=== PATIENT | male | born 1950 | race Caucasian/White ===

== ENCOUNTER 2016-09-15 07:17 | Emergency (ER) | payer BC, OTHER ==
[2016-09-15 07:25] VITALS: TEMP 36.7; Ht 180.3 cm
[2016-09-15] MEDS ORDERED: CYCLOBENZAPRINE HCL 10 MG TAB PO STA (07:35)
[2016-09-15] MEDS ORDERED: OXYCODONE HCL IR 5 MG TAB (IMMEDIATE RELEASE) PO STA (07:35)
--- NOTE | 2016-09-15 08:37 | DIAGNOSTIC IMAGING REPORT ---
LUMBAR SPINE 5 VIEWS CLINICAL HISTORY: Fall with low back pain. FINDINGS: 5 views of lumbar spine are compared to study dated 02/14/2010. The skeletal structures are osteopenic. There is a mild to moderate and age indeterminant superior endplate compression fracture of L1. No retropulsed fragments are identified. Vertebral body height is otherwise maintained throughout the lumbar spine. Alignment is preserved. Small anterior osteophytes are seen throughout. The transverse and spinous processes appear intact. There is no evidence of spondylolysis. Facet arthropathy is seen in the lower lumbar region. Moderate disc space narrowing is seen at L5-S1. Mild disc space narrowing is seen at L4-L5. The visualized bony pelvis appears intact. There is a nonobstructed abdominal bowel gas pattern. IMPRESSION: 1. There is a mild to moderate and age indeterminant superior end plate compression fracture of L1. This is new from 2010 and may be acute. Correlate for point tenderness at this site. 2. No additional findings are concerning for acute fracture. 3. Osteopenia and degenerative change as above. Electronically signed by: Brandon Joel M.D. 09/15/2016 8:36 AM Dictated Date/Time: 09/15/2016 8:32 AM
--- NOTE | 2016-09-15 08:42 | DIAGNOSTIC IMAGING REPORT ---
THORACIC SPINE 3 VIEWS ROUTINE CLINICAL HISTORY: 65 years-old Male presenting with fell approximately 6 feet off a deck last evening, pain in the mid back radiating down to the tailbone. TECHNIQUE: 3 views of the thoracic spine were obtained. COMPARISON: None. FINDINGS: Apparent anterior vertebral body height loss of L1, better visualized on lumbar radiographs. Please see separately dictated report. Thoracic vertebral bodies otherwise maintain normal height and alignment. Intervertebral disc spaces preserved. Mild degenerative changes noted focally at one of the lower thoracic levels. No radiographic evidence of fracture or subluxation. Visualized portion of the thorax normal. IMPRESSION: No acute osseous injury in the thoracic spine. Please see separately dictated report of lumbar radiographs for characterization of L1 compression fracture. Electronically signed by: Hima Amos M.D. 09/15/2016 8:41 AM Dictated Date/Time: 09/15/2016 8:39 AM
[2016-09-15] MEDS ORDERED: HYDR-5688 PO (09:07)
--- NOTE | 2016-09-15 09:08 | EMERGENCY ROOM VISIT NOTE ---
History First contact with patient: 07:30 Chief Complaint: FALL Stated Complaint: FELL AND HURT BACK History of Present Illness The patient is a 65 year old male who presents to the Emergency Room with complaints of back pain. The patient states that he slipped on his deck last night and fell off the side of the deck landing on his mid to lower back last night. He points to his upper lumbar region as the area where he landed but has pain more inferior. The patient denies any chest pain or shortness of breath. The patient denies any numbness and tingling of his legs. The patient denies any loss of bowel or bladder control. The patient states that he urinated since the injury and there has been no blood in his urine. The patient has not taken anything for pain. The patient denies any prior back surgeries. Review of Systems 6 system review was performed and was negative unless stated otherwise in history of present illness. Past Medical/Surgical History Asthma, hernia repair Social History Smoking Status: Never Smoker Alcohol Use: occasionally Marital Status: single Housing Status: lives alone Occupation Status: retired Current/Historical Medications No Active Prescriptions or Reported Meds Physical Exam Vital Signs Date Time Temp Pulse Resp B/P (MAP) Pulse Ox O2 Delivery O2 Flow Rate FiO2 09/15/16 08:47 72 18 117/71 93 09/15/16 07:25 36.7 87 20 136/89 94 Room Air Physical Exam PHYSICAL EXAM: Vital Signs normal: Reviewed Nurse's notes and agree. GEN.: 65- year-old white male appears uncomfortable secondary to back pain. MENTAL STATUS : Alert and oriented 3. LUNGS: Clear to auscultation without wheezes rales or rhonchi. CARDIAC: Regular rate and rhythm without murmur. CHEST WALL: Nontender to palpation throughout. BACK: No CVA tenderness noted. ABDOMEN: Positive bowel sounds all 4 quadrants soft nontender to palpation without organomegaly or masses. THORACIC SPINE: No gross bony deformity noted. Mild tenderness palpation over the lower thoracic spine and the paravertebral region.. LUMBAR SPINE: No gross bony abnormality noted. Patient is tender to palpation over the spinous processes. He is tender to palpation over the paravertebral regions bilaterally. Limited range of motion in all directions secondary to pain. Muscle strength is 5 out of 5 bilateral lower extremities and symmetrical. NEURO: Patient is able to heel and toe walk without difficulty. I lateral patellar and Achilles reflexes are 2+. Sensation is intact to pinprick bilateral lower extremities. Negative straight leg raise bilaterally. Medical Decision & Procedures ER Provider Diagnostic Interpretation: THORACIC SPINE 3 VIEWS ROUTINE CLINICAL HISTORY: 65 years-old Male presenting with fell approximately 6 feet off a deck last evening, pain in the mid back radiating down to the tailbone. TECHNIQUE: 3 views of the thoracic spine were obtained. COMPARISON: None. FINDINGS: Apparent anterior vertebral body height loss of L1, better visualized on lumbar radiographs. Please see separately dictated report. Thoracic vertebral bodies otherwise maintain normal height and alignment. Intervertebral disc spaces preserved. Mild degenerative changes noted focally at one of the lower thoracic levels. No radiographic evidence of fracture or subluxation. Visualized portion of the thorax normal. IMPRESSION: No acute osseous injury in the thoracic spine. Please see separately dictated report of lumbar radiographs for characterization of L1 compression fracture. Electronically signed by: Hima Amos M.D. 09/15/2016 8:41 AM Dictated Date/Time: 09/15/2016 8:39 AM The status of this report is Signed. LUMBAR SPINE 5 VIEWS CLINICAL HISTORY: Fall with low back pain. FINDINGS: 5 views of lumbar spine are compared to study dated 02/14/2010. The skeletal structures are osteopenic. There is a mild to moderate and age indeterminant superior endplate compression fracture of L1. No retropulsed fragments are identified. Vertebral body height is otherwise maintained throughout the lumbar spine. Alignment is preserved. Small anterior osteophytes are seen throughout. The transverse and spinous processes appear intact. There is no evidence of spondylolysis. Facet arthropathy is seen in the lower lumbar region. Moderate disc space narrowing is seen at L5-S1. Mild disc space narrowing is seen at L4-L5. The visualized bony pelvis appears intact. There is a nonobstructed abdominal bowel gas pattern. IMPRESSION: 1. There is a mild to moderate and age indeterminant superior end plate compression fracture of L1. This is new from 2010 and may be acute. Correlate for point tenderness at this site. 2. No additional findings are concerning for acute fracture. 3. Osteopenia and degenerative change as above. Electronically signed by: Brandon Joel M.D. 09/15/2016 8:36 AM Dictated Date/Time: 09/15/2016 8:32 AM The status of this report is Signed. Draft = Not yet reviewed or approved by Radiologist. Signed = Reviewed and approved by Radiologist. Medications Administered Medications (Trade) Dose Ordered Sig/Catherine Route Start Time Stop Time Status Last Admin Dose Admin Cyclobenzaprine HCl (Flexeril Tab) 10 mg NOW STAT PO 09/15/16 07:35 09/15/16 07:37 DC 09/15/16 07:40 10 MG Oxycodone HCl (Roxicodone Immediate Rel Tab) 10 mg NOW STAT PO 09/15/16 07:35 09/15/16 07:37 DC 09/15/16 07:40 10 MG ED Course The patient was evaluated. The patient's EMR medication list were reviewed. The patient was given an OxyIR 10 mg by mouth and Flexeril 10 mg by mouth. X- rays of the lumbar spine and thoracic spine were ordered interpreted by the radiologist and myself. Medical Decision Differential diagnosis included spinal fracture versus contusion versus muscle strain [place] Drug Monitoring Program Search Results: patient reviewed within database Medication Reconcilliation Current Medication List: was personally reviewed by me Blood Pressure Screening Patient's blood pressure: Normal blood pressure Impression Primary Impression: Compression fracture of lumbar vertebra Departure Information Dispostion Home / Self-Care Condition GOOD Prescriptions Hydrocodone/Acetaminophen 5MG/325MG ([place] 5MG/325MG) Tab 1-2 TABLET PO Q6 Y for Pain, #24 TAB For Initial Treatment Prov: Ruthy Martini PA-C 09/15/16 Referrals No Doctor, Assigned (PCP) Forms HOME CARE DOCUMENTATION FORM, IMPORTANT VISIT INFORMATION Patient Instructions ED Fx Comp Vertebral, [facility] [id number] Additional Instructions Ibuprofen 600 mg every 6 hours with food for pain. Take [place] as needed for more severe pain. Do not drive while taking the [place]. Avoid any heavy lifting or strenuous exercise until pain has resolved. This will take at least 6-8 weeks. Follow-up with your family doctor on Sunday for recheck and prescription for more pain medication. If symptoms worsen in the interim, return to ER. Problem Qualifiers Primary Impression: Compression fracture of lumbar vertebra Encounter type: initial encounter Lumbar vertebra fracture level: L1 Fracture type: closed Qualified Codes: S32.010A - Wedge compression fracture of first lumbar vertebra, initial encounter for closed fracture
[2016-09-15 09:20] VITALS: BP 134/78; PULSE 73; O2SAT 93
--- NOTE | 2016-09-15 15:49 | EMERGENCY ROOM VISIT NOTE ---
ED Visit Note First contact with patient: 07:30 I have personally seen and evaluated the patient with the PA. I agree with the diagnosis and management decisions and have been personally involved in the case. Please see Emma Martini PA-C's notes for further details of the history, physical and visit.
== END 2016-09-15 09:21 | disposition home or self-care (01) ==
LOC: C.EDB 07:18
DX: S32.010A Wedge compression fracture of first lumbar vertebra, initial encounter for closed fracture (principal); W19.XXXA Unspecified fall, initial encounter; J45.909 Unspecified asthma, uncomplicated